=== PATIENT | male | born 1960 | race African-American/Black ===

== ENCOUNTER 2024-08-15 11:51 | Inpatient (IN) | payer OTHER ==
[2024-08-15] MEDS ORDERED: LOPERAMIDE HCL 2 MG CAPSULE PO PRN (13:48)
[2024-08-15] MEDS ORDERED: MAGNESIUM HYDROX 2400MG/30ML ORAL SUSPENSION 30 ML CUP PO PRN (13:48)
[2024-08-15] MEDS ORDERED: BENZONATATE 200 MG CAPSULE PO PRN (13:48)
[2024-08-15] MEDS ORDERED: IBUPROFEN 400 MG TABLET (FP) PO PRN (13:48)
[2024-08-15] MEDS ORDERED: BENZOCAINE/MENTHOL (CHLORASEPTIC ) LOZENGE MM PRN (13:48)
[2024-08-15] MEDS ORDERED: NICOTINE POLACRILEX 2 MG GUM BUC PRN (13:48)
[2024-08-15] MEDS ORDERED: P-EPHED 60MG/TRIPROLIDI 2.5MG TABLET PO PRN (13:48)
[2024-08-15] MEDS ORDERED: MAG HYDROX/AL HYDROX/SIMETH 30 ML UNIT-DOSE CUP PO PRN (13:48)
[2024-08-15] MEDS ORDERED: NICOTINE POLACRILEX 2 MG LOZENGE BC PRN (13:48)
[2024-08-15] MEDS ORDERED: ONDANSETRON *ODT* 4 MG TABLET SL PRN (13:48)
[2024-08-15] MEDS ORDERED: NALOXONE (NARCAN) HCL 4 MG/0.1 ML SPRAY NS PRN (13:48)
[2024-08-15] MEDS ORDERED: BISMUTH SUBSALICYLATE 524 MG/30 ML PO PRN (13:48)
[2024-08-15] MEDS ORDERED: POLYETHYLENE GLYCOL (HEALTHYLAX) 3350 17 GM PACKET PO PRN (13:48)
[2024-08-15] MEDS ORDERED: guaiFENesin 600 MG TABLET.ER (FP) PO PRN (13:48)
[2024-08-15] MEDS: MELATONIN 5 MG TABLETS PO SCH (22:44)
[2024-08-15] MEDS: THIAMINE 100 MG TABLET PO SCH (22:44)
[2024-08-16] MEDS: PRENATAL VITAMINS W/ FOLIC ACID TABLET (FP) PO SCH (09:19)
[2024-08-16] MEDS: TAMSULOSIN HCL 0.4 MG CAP PO SCH (09:19)
[2024-08-16] MEDS: methaDONE HCL 10 MG TABLET PO ONE (11:05)
[2024-08-16 11:27] LABS: HEMATOCRIT 37.4 % (40.1-51.0); HEMOGLOBIN 11.7 g/dL (13.7-17.5); MCHC 31.3 g/dl (32.3-36.5); MEAN CELL VOLUME 88.6 fl (79.0-92.2); MEAN PLT VOLUME 10.5 fl (9.4-12.4); PLATELET COUNT 368 x10^3/uL (163-337); RDW 14.9 % (12.2-16.4)
[2024-08-16 12:03] LABS: POTASSIUM 4.6 mmol/L (3.5-5.1)
[2024-08-16 12:09] LABS: CALCIUM 8.7 mg/dL (8.5-10.1)
[2024-08-16 12:10] LABS: BLOOD UREA NITROGEN 26.5 mg/dL (7-18)
[2024-08-16 12:12] LABS: ALBUMIN 2.9 g/dl (3.4-5.0)
[2024-08-16 12:13] LABS: BILIRUBIN,TOTAL 0.3 mg/dL (0.2-1); CREATININE 1.6 mg/dL (0.55-1.3)
[2024-08-16] MEDS ORDERED: methaDONE HCL 10 MG TABLET PO PRN (12:15)
[2024-08-16] MEDS: cloNIDine HCL 0.1 MG TABLET PO SCH (14:58)
[2024-08-17] MEDS ORDERED: methaDONE HCL 40 MG DISPERSABLE TABLET PO ONE (10:00)
[2024-08-18] MEDS ORDERED: cloNIDine HCL 0.1 MG TABLET PO PRN
[2024-08-18] MEDS: methaDONE 40 MG, methaDONE 10 MG PO ONE (09:12)
[2024-08-18] MEDS ORDERED: methaDONE HCL 40 MG DISPERSABLE TABLET PO ONE (10:00)
[2024-08-18] MEDS: ACETAMINOPHEN 325 MG TABLET (FP) PO PRN (21:34)
[2024-08-19] MEDS: IBUPROFEN 600 MG TABLET (FP) PO PRN (09:08)
[2024-08-19] MEDS ORDERED: methaDONE HCL 40 MG DISPERSABLE TABLET PO ONE (10:00)
[2024-08-20] MEDS: methaDONE 40 MG, methaDONE 20 MG PO ONE (09:30)
[2024-08-20] MEDS ORDERED: methaDONE HCL 40 MG DISPERSABLE TABLET PO ONE ×2 (10:00)
[2024-08-20 11:52] LABS: POTASSIUM 3.9 mmol/L (3.5-5.1)
[2024-08-20 11:57] LABS: CALCIUM 9.4 mg/dL (8.5-10.1)
[2024-08-20 11:58] LABS: BLOOD UREA NITROGEN 18.9 mg/dL (7-18)
[2024-08-20 12:01] LABS: CREATININE 1.4 mg/dL (0.55-1.3); PHOSPHOROUS 2.1 mg/dL (2.5-4.9)
[2024-08-21 06:42] VITALS: RESP 16
[2024-08-21] MEDS ORDERED: methaDONE HCL 40 MG DISPERSABLE TABLET PO ONE (10:00)
[2024-08-21 13:58] VITALS: BP 105/68; PULSE 72; TEMP 97.1
== END 2024-08-21 13:01 | disposition other institution (70) | DRG 773 ==
LOC: YASAS 11:51 → Y6N 16:33
PROVIDERS: ADMIT Neuromusculoskeletal Medicine & OMM; ATTEND Neuromusculoskeletal Medicine & OMM
PROC: HZ2ZZZZ Detoxification Services for Substance Abuse Treatment (ICD-10-PCS; principal; 2024-08-15)
DX: F11.23 Opioid dependence with withdrawal (principal); F17.210 Nicotine dependence, cigarettes, uncomplicated; F19.282 Other psychoactive substance dependence with psychoactive substance-induced sleep disorder; M17.0 Bilateral primary osteoarthritis of knee; N40.0 Benign prostatic hyperplasia without lower urinary tract symptoms; R26.89 Other abnormalities of gait and mobility; Z99.89 Dependence on other enabling machines and devices; Z56.0 Unemployment, unspecified; Z59.00 Homelessness unspecified
CPT/HCPCS: 36415; 80053; 80069; 80305; 80307; 85027; 86780; 87811; 93005; 93010

== ENCOUNTER 2024-08-21 13:29 | Inpatient (IN) | payer OTHER ==
[2024-08-21 14:35] VITALS: BMI 21.9
[2024-08-21] MEDS ORDERED: IBUPROFEN 400 MG TABLET (FP) PO PRN (15:52)
[2024-08-21] MEDS ORDERED: BENZOCAINE/MENTHOL (CHLORASEPTIC ) LOZENGE MM PRN (15:52)
[2024-08-21] MEDS ORDERED: guaiFENesin 600 MG TABLET.ER (FP) PO PRN (15:52)
[2024-08-21] MEDS ORDERED: MAGNESIUM HYDROX 2400MG/30ML ORAL SUSPENSION 30 ML CUP PO PRN (15:52)
[2024-08-21] MEDS ORDERED: MAG HYDROX/AL HYDROX/SIMETH 30 ML UNIT-DOSE CUP PO PRN (15:52)
[2024-08-21] MEDS ORDERED: hydrOXYzine PAMOATE 25 MG CAPSULE (FP) PO PRN (15:52)
[2024-08-21] MEDS ORDERED: POLYETHYLENE GLYCOL (HEALTHYLAX) 3350 17 GM PACKET PO PRN (15:52)
[2024-08-21] MEDS ORDERED: LOPERAMIDE HCL 2 MG CAPSULE PO PRN (15:52)
[2024-08-21] MEDS ORDERED: BENZONATATE 200 MG CAPSULE PO PRN (15:52)
[2024-08-21] MEDS ORDERED: NALOXONE HCL 0.4 MG/ML VIAL IVPUSH PRN (15:52)
[2024-08-21] MEDS ORDERED: NALOXONE (NARCAN) HCL 4 MG/0.1 ML SPRAY NS PRN (15:52)
[2024-08-21] MEDS ORDERED: METHOCARBAMOL 500 MG TABLET PO PRN (15:52)
[2024-08-21] MEDS: THIAMINE 100 MG TABLET PO SCH (21:16)
[2024-08-21] MEDS: MELATONIN 5 MG TABLETS PO SCH (21:16)
[2024-08-22] MEDS ORDERED: methaDONE HCL 40 MG DISPERSABLE TABLET PO SCH (06:00)
[2024-08-22] MEDS: TAMSULOSIN HCL 0.4 MG CAP PO SCH (07:46)
[2024-08-22] MEDS: PRENATAL VITAMINS W/ FOLIC ACID TABLET (FP) PO SCH (10:32)
[2024-08-23] MEDS: IBUPROFEN 600 MG TABLET (FP) PO PRN (21:09)
[2024-08-25 06:29] VITALS: RESP 16
[2024-08-25] MEDS: LIDOCAINE 5% TOPICAL PATCH TP SCH (10:42)
[2024-08-25] MEDS: LIDOCAINE PATCH REMOVAL MC SCH (21:19)
[2024-08-25] MEDS: MIRTAZAPINE 15 MG TABLET (FP) PO SCH (21:19)
[2024-08-25] MEDS: ACETAMINOPHEN 325 MG TABLET (FP) PO PRN (21:21)
[2024-08-26] MEDS ORDERED: methaDONE HCL 40 MG DISPERSABLE TABLET PO SCH (06:00)
[2024-08-26 11:18] LABS: HEMATOCRIT 36.6 % (40.1-51.0); HEMOGLOBIN 11.4 g/dL (13.7-17.5); MCHC 31.1 g/dl (32.3-36.5); MEAN CELL VOLUME 90.4 fl (79.0-92.2); MEAN PLT VOLUME 11.4 fl (9.4-12.4); PLATELET COUNT 276 x10^3/uL (163-337); RDW 15.4 % (12.2-16.4)
[2024-08-26 11:33] LABS: POTASSIUM 4.4 mmol/L (3.5-5.1)
[2024-08-26 11:46] LABS: ALBUMIN 3.2 g/dl (3.4-5.0); CALCIUM 9.4 mg/dL (8.5-10.1)
[2024-08-26 11:50] LABS: CREATININE 1.6 mg/dL (0.55-1.3)
[2024-08-26 11:51] LABS: BILIRUBIN,TOTAL 0.3 mg/dL (0.2-1); BLOOD UREA NITROGEN 21.1 mg/dL (7-18); TOT PROT 7.3 g/dl (6.4-8.2)
[2024-09-03 06:42] VITALS: BP 132/86; PULSE 68; TEMP 98
== END 2024-09-03 09:22 | disposition home or self-care (01) | DRG 772 ==
LOC: YASAS 13:29 → Y3NR 13:30 → Y3E 08-23 14:35
PROVIDERS: ADMIT Neuromusculoskeletal Medicine & OMM; ATTEND Psychiatry & Neurology Pain Medicine
PROC: HZ42ZZZ Group Counseling for Substance Abuse Treatment, Cognitive-Behavioral (ICD-10-PCS; principal; 2024-08-21)
DX: F11.23 Opioid dependence with withdrawal (principal); F17.210 Nicotine dependence, cigarettes, uncomplicated; F19.282 Other psychoactive substance dependence with psychoactive substance-induced sleep disorder; M17.0 Bilateral primary osteoarthritis of knee; N40.0 Benign prostatic hyperplasia without lower urinary tract symptoms
CPT/HCPCS: 36415; 71045-TC-FY; 80053; 82652; 85027; 86803

== ENCOUNTER 2024-12-22 10:38 | Inpatient (IN) | payer OTHER ==
[2024-12-22 11:04] VITALS: BMI 21.2
[2024-12-22] MEDS ORDERED: DICYCLOMINE HCL 10 MG CAPSULE PO PRN (11:27)
[2024-12-22] MEDS ORDERED: LOPERAMIDE HCL 2 MG CAPSULE PO PRN (11:27)
[2024-12-22] MEDS ORDERED: IBUPROFEN 400 MG TABLET (FP) PO PRN (11:27)
[2024-12-22] MEDS ORDERED: NICOTINE POLACRILEX 2 MG LOZENGE BC PRN (11:27)
[2024-12-22] MEDS ORDERED: NALOXONE (NARCAN) HCL 4 MG/0.1 ML SPRAY NS PRN (11:27)
[2024-12-22] MEDS ORDERED: MAG HYDROX/AL HYDROX/SIMETH 30 ML UNIT-DOSE CUP PO PRN (11:27)
[2024-12-22] MEDS ORDERED: BISMUTH SUBSALICYLATE 524 MG/30 ML PO PRN (11:27)
[2024-12-22] MEDS ORDERED: guaiFENesin 600 MG TABLET.ER (FP) PO PRN (11:27)
[2024-12-22] MEDS ORDERED: BENZONATATE 200 MG CAPSULE PO PRN (11:27)
[2024-12-22] MEDS ORDERED: BENZOCAINE/MENTHOL (CHLORASEPTIC ) LOZENGE MM PRN (11:27)
[2024-12-22] MEDS ORDERED: POLYETHYLENE GLYCOL (HEALTHYLAX) 3350 17 GM PACKET PO PRN (11:27)
[2024-12-22] MEDS ORDERED: MAGNESIUM HYDROX 2400MG/30ML ORAL SUSPENSION 30 ML CUP PO PRN (11:27)
[2024-12-22] MEDS ORDERED: ONDANSETRON *ODT* 4 MG TABLET SL PRN (11:27)
[2024-12-22] MEDS ORDERED: NICOTINE 14 MG/24 HOURS TOPICAL PATCH TD ONE (12:42)
[2024-12-22] MEDS: NICOTINE 14 MG/24 HOURS TOPICAL PATCH TD SCH (12:46)
[2024-12-22] MEDS: IBUPROFEN 600 MG TABLET (FP) PO PRN (17:34)
[2024-12-22] MEDS: MIRTAZAPINE 15 MG TABLET (FP) PO SCH (22:31)
[2024-12-22] MEDS: THIAMINE 100 MG TABLET PO SCH (22:31)
[2024-12-22] MEDS: METHOCARBAMOL 500 MG TABLET PO PRN (22:31)
[2024-12-22] MEDS: MELATONIN 5 MG TABLETS PO SCH (22:31)
[2024-12-23] MEDS: TAMSULOSIN HCL 0.4 MG CAP PO SCH (09:25)
[2024-12-23] MEDS: PRENATAL VITAMINS W/ FOLIC ACID TABLET (FP) PO SCH (10:01)
[2024-12-23 10:04] LABS: MCHC 31.7 g/dl (32.3-36.5); MEAN CELL VOLUME 91.4 fl (79.0-92.2); MEAN PLT VOLUME 11.3 fl (9.4-12.4); RDW 14.2 % (12.2-16.4)
[2024-12-23 10:56] LABS: CO2 30.0 mmol/L (21-32)
[2024-12-23 10:57] LABS: GLUCOSE,RANDOM 113.0 mg/dL (74-106)
[2024-12-23 10:59] LABS: SGOT/AST 17.0 U/L (15-37); SGPT/ALT 18.0 U/L (13-61)
[2024-12-23 11:00] LABS: CREATININE 1.6 mg/dL (0.55-1.3)
[2024-12-23 11:01] LABS: TOT PROT 8.0 g/dl (6.4-8.2)
[2024-12-23 11:02] LABS: ALK PHOS 93.0 U/L (45-117)
[2024-12-25 10:37] LABS: CO2 31.0 mmol/L (21-32); GLUCOSE,RANDOM 88.0 mg/dL (74-106)
[2024-12-25 10:40] LABS: CREATININE 1.3 mg/dL (0.55-1.3)
[2024-12-25] MEDS: ACETAMINOPHEN 325 MG TABLET (FP) PO PRN (21:30)
[2024-12-26] MEDS: hydrOXYzine PAMOATE 25 MG CAPSULE (FP) PO PRN (05:21)
[2024-12-27 06:31] VITALS: RESP 16
[2024-12-27 08:56] VITALS: BP 136/82; PULSE 78; TEMP 97.5
== END 2024-12-27 12:40 | disposition other institution (70) | DRG 773 ==
LOC: YASAS 10:38 → Y3N 12:49
PROVIDERS: ADMIT Family Medicine; ATTEND Allergy & Immunology
PROC: HZ2ZZZZ Detoxification Services for Substance Abuse Treatment (ICD-10-PCS; principal; 2024-12-22)
DX: F11.20 Opioid dependence, uncomplicated (principal); N40.0 Benign prostatic hyperplasia without lower urinary tract symptoms; M17.0 Bilateral primary osteoarthritis of knee; G47.9 Sleep disorder, unspecified; F17.210 Nicotine dependence, cigarettes, uncomplicated
CPT/HCPCS: 36415; 71046-TC-FY; 80048; 80053; 80305; 80307; 85027; 86780; 93005; 93010

== ENCOUNTER 2024-12-27 12:48 | Inpatient (IN) | payer OTHER ==
[2024-12-27] MEDS ORDERED: BENZONATATE 200 MG CAPSULE PO PRN (14:03)
[2024-12-27] MEDS ORDERED: NICOTINE POLACRILEX 4 MG LOZENGE BC PRN (14:03)
[2024-12-27] MEDS ORDERED: MAG HYDROX/AL HYDROX/SIMETH 30 ML UNIT-DOSE CUP PO PRN (14:03)
[2024-12-27] MEDS ORDERED: guaiFENesin 600 MG TABLET.ER (FP) PO PRN (14:03)
[2024-12-27] MEDS ORDERED: NALOXONE (NARCAN) HCL 4 MG/0.1 ML SPRAY NS PRN (14:03)
[2024-12-27] MEDS ORDERED: POLYETHYLENE GLYCOL (HEALTHYLAX) 3350 17 GM PACKET PO PRN (14:03)
[2024-12-27] MEDS ORDERED: LOPERAMIDE HCL 2 MG CAPSULE PO PRN (14:03)
[2024-12-27] MEDS ORDERED: NICOTINE POLACRILEX 4 MG GUM BUC PRN (14:03)
[2024-12-27] MEDS ORDERED: BENZOCAINE/MENTHOL (CHLORASEPTIC ) LOZENGE MM PRN (14:03)
[2024-12-27] MEDS ORDERED: NALOXONE HCL 0.4 MG/ML VIAL IVPUSH PRN (14:03)
[2024-12-27] MEDS ORDERED: IBUPROFEN 400 MG TABLET (FP) PO PRN (14:03)
[2024-12-27] MEDS ORDERED: MAGNESIUM HYDROX 2400MG/30ML ORAL SUSPENSION 30 ML CUP PO PRN (14:03)
[2024-12-27] MEDS ORDERED: hydrOXYzine PAMOATE 25 MG CAPSULE (FP) PO PRN (14:03)
[2024-12-27] MEDS ORDERED: LIDOCAINE 5% TOPICAL PATCH TP PRN (14:09)
[2024-12-27] MEDS: MIRTAZAPINE 15 MG TABLET (FP) PO SCH (21:38)
[2024-12-27] MEDS: MELATONIN 5 MG TABLETS PO SCH (21:38)
[2024-12-27] MEDS: METHOCARBAMOL 500 MG TABLET PO PRN (21:38)
[2024-12-27] MEDS: THIAMINE 100 MG TABLET PO SCH (21:38)
[2024-12-27] MEDS: LIDOCAINE PATCH REMOVAL MC SCH (21:38)
[2024-12-27] MEDS: IBUPROFEN 600 MG TABLET (FP) PO PRN (21:38)
[2024-12-27] MEDS ORDERED: MIRTAZAPINE 15 MG TABLET (FP) PO SCH (22:00)
[2024-12-28] MEDS: TAMSULOSIN HCL 0.4 MG CAP PO SCH (07:56)
[2024-12-28] MEDS: NICOTINE 14 MG/24 HOURS TOPICAL PATCH TD SCH (09:48)
[2024-12-28] MEDS: PRENATAL VITAMINS W/ FOLIC ACID TABLET (FP) PO SCH (09:48)
[2024-12-28] MEDS ORDERED: LIDOCAINE 5% TOPICAL PATCH TP SCH (10:00)
[2025-01-03] MEDS: ACETAMINOPHEN 325 MG TABLET (FP) PO PRN (21:27)
[2025-01-07 06:45] VITALS: RESP 16
[2025-01-07] MEDS: MIRTAZAPINE 15 MG TABLET (FP) PO SCH (21:24)
[2025-01-07] MEDS: MELATONIN 5 MG TABLETS PO SCH (21:25)
[2025-01-07] MEDS: BACLOFEN 10 MG TABLET (FP) PO SCH (21:25)
[2025-01-10 07:05] VITALS: BP 119/79; PULSE 73; TEMP 97.3
== END 2025-01-10 09:42 | disposition home or self-care (01) | DRG 772 ==
LOC: YASAS 12:48 → Y3E 12:51
PROVIDERS: ADMIT Psychiatry & Neurology Pain Medicine; ATTEND Psychiatry & Neurology Pain Medicine
PROC: HZ42ZZZ Group Counseling for Substance Abuse Treatment, Cognitive-Behavioral (ICD-10-PCS; principal; 2024-12-27)
DX: F11.20 Opioid dependence, uncomplicated (principal); F14.20 Cocaine dependence, uncomplicated; F17.210 Nicotine dependence, cigarettes, uncomplicated; G47.00 Insomnia, unspecified; M17.0 Bilateral primary osteoarthritis of knee; M54.50 Low back pain, unspecified; G89.29 Other chronic pain; N40.0 Benign prostatic hyperplasia without lower urinary tract symptoms; Z86.11 Personal history of tuberculosis; Z99.89 Dependence on other enabling machines and devices
CPT/HCPCS: J0475